=== PATIENT | female | born 1935 | race Caucasian/White ===

== ENCOUNTER → 2016-12-08 | Outpatient (CLI) | payer MEDICARE, OTHER ==
[~2016-12-08] MED LIST: ALPRAZOLAM; ALPRAZOLAM PO; ALPRAZOLAM0.25 MG PO; AMLODIPINE BES2.5 MG PO; ASPIRIN; ASPIRIN81 M1 PO; ASPIRIN81 M2 PO; ATENOLOL; ATENOLOL PO; ATENOLOL50 MG PO; CIPRO250 MG PO; CITRATE OF MAG300 ML PO; CLEOCIN HCL300 M1 PO; COLACE CLEAR50 MG PO; DIOVAN; HCTZ; HYDROCHLOROTH12.5 M1 PO; HYDROCHLOROTH12.5 MG PO; HYDROCHLOROTHIA25 MG PO; LEVOTHYROXINE75 MCG PO; LEVOXYL50 MC1 PO; LEVOXYL50 MCG PO; LISINOPRIL; MILK OF MAGNESIA PO; NORVASC2.5 MG PO; SULAR; SYNTHROID; TENORMIN25 MG PO; TYLENOL #3 PO; VICODIN 5-3001 EACH PO
--- NOTE | ~2016-12-08 | EKG ---
PATIENT: JULIET NARANJO UNIT #: [id number] Ventricular Rate: 77 BPM Atrial Rate: 77 BPM P-R Interval: 164 ms QRS Duration: 76 ms Q-T Interval: 390 ms QTC Calculation(Bezet): 441 ms P [place]: 81 degrees Calculated R [place]: 39 degrees Calculated T [place]: 68 degrees Diagnosis Line: Sinus rhythm with frequent Premature ventricular Diagnosis Line: complexes Diagnosis Line: Otherwise normal ECG Diagnosis Line: When compared with ECG of 01-JUL-2015 07:41, Diagnosis Line: Premature ventricular complexes are now Present Diagnosis Line: Confirmed by SHIVAM GONZALEZ MD ([id number]) on 12/08/2016 Diagnosis Line: 9:57:47 PM INTERPRETING MD: CARLOS BURGOS
[2016-12-08 08:24] LABS: HEMOGLOBIN 13.9 gm/dL (12.0-16.0); MEAN CELL VOLUME 90.2 FL (83-96); MEAN CORPUSCULAR HEMOGLOBIN 29.8 PG (28-34); MEAN PLATELET VOLUME 8.8 FL (6.5-11.5); RED BLOOD COUNT 4.65 X10e (3.90-5.30); RED CELL DISTRIBUTION WIDTH 14.3 % (11.0-15.5); WHITE BLOOD COUNT 6.6 X10e3 (4.0-10.5)
[2016-12-08 08:43] LABS: PARTIAL THROMBOPLASTIN TIME 23.4 SECONDS (23.5-31.3)
[2016-12-08 08:53] LABS: BLOOD UREA NITROGEN 23 mg/dL (9-23); BUN/CREATININE RATIO 28.75; CALCIUM SERUM 9.4 mg/dL (8.4-10.2); CARBON DIOXIDE 31 mmol/L (22-31); CHLORIDE 105 mmol/L (100-111); CREATININE SERUM 0.8 mg/dL (0.6-1.4); GLOM FILT RATE Estimated ABOVE60 mL/min (>60); GLUCOSE FASTING 98 mg/dL (70-110); POTASSIUM 4.4 mmol/L (3.5-5.1); SODIUM 142 mmol/L (135-145)
== END | disposition home or self-care (01) ==
LOC: CCVL 07:46
PROVIDERS: Internal Medicine Cardiovascular Disease
DX: I49.3 Ventricular premature depolarization (principal); I11.9 Hypertensive heart disease without heart failure; I20.0 Unstable angina; R94.31 Abnormal electrocardiogram [ECG] [EKG]; I70.0 Atherosclerosis of aorta; E11.9 Type 2 diabetes mellitus without complications; I10 Essential (primary) hypertension; Z88.0 Allergy status to penicillin; Z88.2 Allergy status to sulfonamides; Z91.048 Other nonmedicinal substance allergy status
CPT/HCPCS: 36415; 80048; 85027; 85610; 85730; 93005; C1769; C1887; C1894; J1644; J2250; J2405; J3010

== ENCOUNTER 2017-06-15 12:38 | Emergency (ER) | payer MEDICARE, OTHER ==
[~2017-06-15] VITALS: Ht 157.5 cm; Wt 62.1 kg
== END 2017-06-15 15:01 | disposition left against medical advice (07) ==
LOC: CED 12:38
DX: Z53.21 Procedure and treatment not carried out due to patient leaving prior to being seen by health care provider (principal)

== ENCOUNTER 2017-06-15 14:32 | Emergency (ER) | payer MEDICARE, OTHER | END 2017-06-15 16:57 | disposition home or self-care (01) | LOC: SED 14:32 | DX: M79.671 Pain in right foot (principal); I10 Essential (primary) hypertension; F41.9 Anxiety disorder, unspecified; Z79.01 Long term (current) use of anticoagulants; Z88.0 Allergy status to penicillin; Z88.2 Allergy status to sulfonamides; Z79.899 Other long term (current) drug therapy | CPT/HCPCS: 99283 ==